=== PATIENT | male | born 1945 | race Caucasian/White ===

== ENCOUNTER 2018-09-22 14:05 | Day surgery (SDC) | payer MEDICARE ==
[~2018-09-22] VITALS: Ht 188 cm; Wt 110.0 kg
[2018-09-22] VITALS (7 sets, daily range): BP systolic 153–178; BP diastolic 87–111
[2018-09-22] MEDS ORDERED: LORazepam 0.5 MG tablet PO PRN (14:30)
[2018-09-22] MEDS ORDERED: diphenhydrAMINE 25mg capsule PO PRN (14:30)
[2018-09-22] MEDS ORDERED: normal saline 1,000 ML IV SCH (14:30)
[2018-09-22 15:28] LABS: BASOPHILS # (AUTO) 0.1 X10'3 (0-0.2); BASOPHILS % (AUTO) 0.7 % (0-1); EOSINOPHILS # (AUTO) 0.3 X10'3 (0-0.9); EOSINOPHILS % (AUTO) 2.9 % (0-6); HEMATOCRIT 39.2 % (42.0-52.0); HEMOGLOBIN 13.2 g/dl (14.0-17.9); LYMPHOCYTES # (AUTO) 1.4 X10'3 (1.1-4.8); LYMPHOCYTES % (AUTO) 15.3 % (21-51); MEAN CORPUSCULAR HEMOGLOBIN 30.9 PG (27.0-31.0); MEAN CORPUSCULAR HGB CONC 33.7 g/dL (33.0-36.5); MEAN CORPUSCULAR VOLUME 91.9 FL (78-98); MEAN PLATELET VOLUME 7.1 FL (7.4-10.4); MONOCYTES # (AUTO) 0.8 X10'3 (0-0.9); MONOCYTES % (AUTO) 9.5 % (2-12); NEUTROPHILS # (AUTO) 6.3 X10'3 (1.8-7.7); NEUTROPHILS % (AUTO) 71.6 % (42-75); PLATELET COUNT 198 X10'3 (140-440); RED BLOOD COUNT 4.26 X10'6 (4.70-6.10); RED CELL DISTRIBUTION WIDTH 14.9 % (11.5-14.5); WHITE BLOOD COUNT 8.8 X10'3 (4.5-11.0)
[2018-09-22 15:41] LABS: ALANINE AMINOTRANSFERASE 19 U/L (12-78); ALBUMIN 3.3 G/DL (3.4-5.0); ALKALINE PHOSPHATASE 46 IU/L (46-116); ANION GAP 6 (8-16); ASPARTATE AMINO TRANSFERASE 6 U/L (10-37); BILIRUBIN,TOTAL 1.1 MG/DL (0.1-1.0); BLOOD UREA NITROGEN 17 MG/DL (7-18); BUN/CREATININE RATIO 11.8 (5.4-32.0); CALCIUM 8.4 MG/DL (8.5-10.1); CHLORIDE 111 MMOL/L (99-107); CREATININE 1.44 MG/DL (0.60-1.10); GLUCOSE 101 MG/DL (70-104); PARTIAL THROMBOPLASTIN TIME 29 SECONDS (22-32); POTASSIUM 4.7 MMOL/L (3.5-5.1); SODIUM 142 MMOL/L (135-145); TOTAL PROTEIN 6.7 G/DL (6.4-8.2); eGFR 48 ML/MIN
[2018-09-22] MEDS ORDERED: SPIR25TA5 PO (15:55)
[2018-09-22] MEDS ORDERED: AMPH30TA3 PO (15:55)
[2018-09-22] MEDS ORDERED: ATOR20TA PO (15:55)
[2018-09-22] MEDS ORDERED: TEST200V10 IM (15:55)
[2018-09-22] MEDS ORDERED: FLO0.4C PO (15:55)
[2018-09-22] MEDS ORDERED: CLOP75TA35 PO (15:55)
[2018-09-22] MEDS ORDERED: NEBI5TAB10 PO (15:55)
[2018-09-22] MEDS ORDERED: GABA-532 PO (15:55)
[2018-09-22] MEDS ORDERED: METF500T PO (15:55)
[2018-09-22] MEDS ORDERED: TADA20TA PO (15:55)
[2018-09-22] MEDS ORDERED: phenylephrine 10mg/ml inj. ONE (16:02)
[2018-09-22] MEDS ORDERED: ACET-1059 PO (16:03)
[2018-09-22] MEDS ORDERED: LIDOcaine 1% (10mg/ml)w/preservative injection 20ml MDV ONE (16:03)
[2018-09-22] MEDS ORDERED: midazolam 2 mg/2 ml injection ONE (16:03)
[2018-09-22] MEDS ORDERED: IBUP-864 PO (16:03)
[2018-09-22] MEDS ORDERED: fentaNYL/PF 50MCG/1 ML 2ML syringe ONE (16:03)
[2018-09-22] MEDS ORDERED: heparin 1,000unit/ml 10ml vial 10 ML ONE (16:03)
[2018-09-22] MEDS ORDERED: DOPamine 400mg/D5W 250ml 250 ML IV ONE (16:03)
[2018-09-22] MEDS ORDERED: PENI500T2 PO (16:03)
[2018-09-22] MEDS ORDERED: iohexol 350 MG/ML 50ML vial IV ONE (16:04)
[2018-09-22] MEDS ORDERED: iohexol 350MG/ML 100ml bottle IV ONE (16:04)
[2018-09-22] MEDS ORDERED: atropine 0.1mg/ml 10ml syringe ONE (16:04)
[2018-09-22] MEDS ORDERED: OXAZEpam 15mg capsule PO PRN (17:35)
[2018-09-22] MEDS ORDERED: oxyCODONE IR 5mg (immed. release) tablet PO ONE (17:40)
== END 2018-09-22 19:30 | disposition home or self-care (01) ==
LOC: SSTAY O 14:05
PROVIDERS: ATTEND Internal Medicine Interventional Cardiology
DX: I65.23 Occlusion and stenosis of bilateral carotid arteries (principal); I10 Essential (primary) hypertension; I25.10 Atherosclerotic heart disease of native coronary artery without angina pectoris; E11.9 Type 2 diabetes mellitus without complications; G47.33 Obstructive sleep apnea (adult) (pediatric); E78.5 Hyperlipidemia, unspecified; N40.0 Benign prostatic hyperplasia without lower urinary tract symptoms; Z86.73 Personal history of transient ischemic attack (TIA), and cerebral infarction without residual deficits; Z79.84 Long term (current) use of oral hypoglycemic drugs; Z79.899 Other long term (current) drug therapy; Z95.1 Presence of aortocoronary bypass graft; Z88.5 Allergy status to narcotic agent; Z88.8 Allergy status to other drugs, medicaments and biological substances; Z79.01 Long term (current) use of anticoagulants
CPT/HCPCS: 36222; 36415; 80053; 82948; 85025; 85610; 85730; 93005; C1769; J0461; J1265; J1644; J2001; J2250; J2370; J3010; J7030; Q0163; Q9967; A6258; C1760

== ENCOUNTER 2018-11-16 19:12 | Inpatient (IN) | payer MEDICARE ==
[~2018-11-16] VITALS: Ht 188 cm; Wt 104.5 kg
[~2018-11-16 19:12] MED LIST: ACET-1059 PO; AMPH30TA3 PO; ATOR20TA PO; CLOP75TA35 PO; FLO0.4C PO; GABA-532 PO; IBUP-864 PO; METF500T PO; NEBI5TAB10 PO; PENI500T2 PO; SPIR25TA5 PO; TADA20TA PO; TEST200V10 IM
[2018-11-16] MEDS ORDERED: fentaNYL/PF 50MCG/1 ML 2ML syringe IV ONE ×2 (19:55→20:35)
[2018-11-16] MEDS ORDERED: morphine 10mg/ml inj. IV PRN (21:00)
[2018-11-16] MEDS ORDERED: diatrozoate meglu/diatrozoate sod (37% iodine) 120ML oral solution ONE (21:01)
[2018-11-16 21:27] LABS: BASOPHILS # (AUTO) 0.1 X10'3 (0-0.2); BASOPHILS % (AUTO) 0.7 % (0-1); EOSINOPHILS # (AUTO) 0.1 X10'3 (0-0.9); EOSINOPHILS % (AUTO) 1.2 % (0-6); HEMATOCRIT 42.8 % (42.0-52.0); HEMOGLOBIN 14.4 g/dl (14.0-17.9); LYMPHOCYTES # (AUTO) 1.4 X10'3 (1.1-4.8); LYMPHOCYTES % (AUTO) 13.5 % (21-51); MEAN CORPUSCULAR HEMOGLOBIN 30.1 PG (27.0-31.0); MEAN CORPUSCULAR HGB CONC 33.5 g/dL (33.0-36.5); MEAN PLATELET VOLUME 7.4 FL (7.4-10.4); MONOCYTES # (AUTO) 0.9 X10'3 (0-0.9); MONOCYTES % (AUTO) 8.7 % (2-12); NEUTROPHILS % (AUTO) 75.9 % (42-75); PLATELET COUNT 227 X10'3 (140-440); RED BLOOD COUNT 4.76 X10'6 (4.70-6.10); RED CELL DISTRIBUTION WIDTH 13.9 % (11.5-14.5); WHITE BLOOD COUNT 10.5 X10'3 (4.5-11.0)
[2018-11-16 21:41] LABS: ALANINE AMINOTRANSFERASE 46 U/L (12-78); ALBUMIN 3.5 G/DL (3.4-5.0); ALKALINE PHOSPHATASE 56 IU/L (46-116); ANION GAP 9 (8-16); ASPARTATE AMINO TRANSFERASE 40 U/L (10-37); BILIRUBIN,TOTAL 0.7 MG/DL (0.1-1.0); BLOOD UREA NITROGEN 40 MG/DL (7-18); BUN/CREATININE RATIO 19.9 (5.4-32.0); CALCIUM 9.7 MG/DL (8.5-10.1); CHLORIDE 108 MMOL/L (99-107); CREATININE 2.01 MG/DL (0.60-1.10); GLUCOSE 133 MG/DL (70-104); POTASSIUM 4.2 MMOL/L (3.5-5.1); SODIUM 142 MMOL/L (135-145); TOTAL CARBON DIOXIDE 24.7 MMOL/L (24-32); TOTAL PROTEIN 6.9 G/DL (6.4-8.2); eGFR 33 ML/MIN
[2018-11-17] VITALS (8 sets, daily range): BP systolic 141–173; BP diastolic 83–102
[2018-11-17] MEDS ORDERED: ondansetron/PF 4mg/2ml inj IV PRN (01:25)
[2018-11-17] MEDS ORDERED: morphine 2 MG/ML inj. syringe IV PRN ×2 (01:25→09:05)
[2018-11-17] MEDS ORDERED: pantoprazole 40 MG vial IV ONE (02:40)
--- NOTE | 2018-11-17 02:43 | NUR ---
pt placed on hospital bed for comfort
[2018-11-17] MEDS: normal saline 1000ml 1,000 ML IV SCH ×2 (02:52→11:25)
[2018-11-17] MEDS: morphine 2 MG/ML inj. syringe IV PRN ×2 (02:53→06:59)
--- NOTE | 2018-11-17 03:25 | NUR ---
received report from Enzo Marte RN in the ER. had the opportunity to ask questions. awaiting pt arrival now.
--- NOTE | 2018-11-17 03:30 | NUR ---
PT ARRIVED TO UNIT, with all belongings, oriented to room, call light in reach, tele monitor placed on pt, pt vomited almost immediately and Zofran was given, pt had no more episodes of emesis.
--- NOTE | 2018-11-17 05:07 | NUR ---
9 beat run of V-Tach noted called Dr. Xie, check Mg and K, put in order to add on Mg to AM labs.
[2018-11-17] MEDS ORDERED: potassium Cl 20 mEq SR tablet PO PRN ×2 (05:10)
[2018-11-17] MEDS ORDERED: magnesium 4gm in 100ml NS 100 ML IV PRN (05:10)
[2018-11-17] MEDS ORDERED: potassium CL 10mEq/100ml bag 100 ML IV PRN (05:10)
[2018-11-17] MEDS ORDERED: magnesium 2GM in 50ml NS 50 ML IV PRN (05:10)
[2018-11-17] MEDS ORDERED: magnesium Cl slow-release 64mg tablet PO PRN (05:10)
--- NOTE | 2018-11-17 06:28 | NUR ---
Problems reprioritized. Patient report given, questions answered & plan of care reviewed with Timo Christianson RN.
--- NOTE | 2018-11-17 06:47 | NUR ---
Patient in room [facility] 4021. I have received report from Michael RN and had the opportunity to ask questions and assume patient care.
[2018-11-17 07:12] LABS: MAGNESIUM 1.7 MG/DL (1.5-2.4); POTASSIUM 4.5 MMOL/L (3.5-5.1)
[2018-11-17] MEDS ORDERED: gabapentin 300mg capsule PO SCH (08:00)
[2018-11-17] MEDS ORDERED: tamsulosin 0.4mg capsule PO SCH (08:00)
[2018-11-17] MEDS ORDERED: metoprolol tartrate 25mg tablet PO SCH (08:00)
[2018-11-17 09:18] LABS: HEMOGLOBIN A1C 6.2 % (4.5-6.2)
[2018-11-17] MEDS ORDERED: mineral oil 133ml enema RC ONE (11:25)
[2018-11-17] MEDS ORDERED: fentaNYL/PF 50MCG/1 ML 2ML syringe ONE (13:16)
[2018-11-17] MEDS ORDERED: MIDAZolam 5mg/5ml vial ONE (13:16)
[2018-11-17] MEDS ORDERED: GABA-532 PO (14:18)
--- NOTE | 2018-11-17 14:56 | NUR ---
DM Consult: Pt A1C <7 and not appropriate for DM eds at this time. Addendum: 11/17/18 at [address] Amended: Links added.
[2018-11-17] MEDS ORDERED: OXYC5CAP19 PO (16:22)
--- NOTE | 2018-11-17 17:31 | NUR ---
safe DC. all belongings with patient. left with spouse in personal vehicle.
[2018-11-17] MEDS ORDERED: gabapentin 400mg capsule PO SCH (20:00)
[2018-11-17] MEDS ORDERED: atorvastatin 20mg tablet PO SCH (21:00)
[2018-11-18] MEDS ORDERED: tamsulosin 0.4mg capsule PO SCH (08:00)
== END 2018-11-17 17:30 | disposition home or self-care (01) | DRG 394 ==
LOC: ER 19:12 → ED HOLD 11-17 01:30 → ORTHO 4S 11-17 03:30
PROVIDERS: ADMIT Internal Medicine; ATTEND Internal Medicine
PROC: 0DBP8ZZ Excision of Rectum, Via Natural or Artificial Opening Endoscopic (ICD-10-PCS; principal; 2018-11-17)
DX: K64.8 Other hemorrhoids (principal); N17.9 Acute kidney failure, unspecified; E11.42 Type 2 diabetes mellitus with diabetic polyneuropathy; E78.5 Hyperlipidemia, unspecified; I10 Essential (primary) hypertension; I25.10 Atherosclerotic heart disease of native coronary artery without angina pectoris; N28.1 Cyst of kidney, acquired; I70.1 Atherosclerosis of renal artery; K62.1 Rectal polyp; K63.5 Polyp of colon; K64.5 Perianal venous thrombosis; Z79.02 Long term (current) use of antithrombotics/antiplatelets; Z79.84 Long term (current) use of oral hypoglycemic drugs; Z79.899 Other long term (current) drug therapy; Z86.73 Personal history of transient ischemic attack (TIA), and cerebral infarction without residual deficits; Z95.1 Presence of aortocoronary bypass graft; Z88.5 Allergy status to narcotic agent
CPT/HCPCS: 36415; 45338; 74018; 74176; 80053; 83036; 83735; 84132; 85025; 87081; 88305; 96374; 96375; 96376; 99152; 99285; A4620; C1773; C9113; G0378; J2250; J2270; J2405; J3010; J7030; J7040; Q9963